=== PATIENT | female | born 1940 | race Caucasian/White ===

== ENCOUNTER 2020-04-07 12:54 | Emergency (ER) | payer MEDICARE, SELFPAY ==
[2020-04-07 13:04] VITALS: BP 133/50; PULSE 86; RESP 16; O2SAT 99
[2020-04-07 13:17] VITALS: BP 133/50; PULSE 86; RESP 16; O2SAT 99
--- NOTE | 2020-04-07 13:19 | ED.FEMALEGU ---
HPI - Female Genitourinary General Chief complaint: Urogenital-Female Stated complaint: uti Time Seen by Provider: 04/07/20 13:30 Source: patient History of Present Illness HPI Narrative: Patient states she feels as if she has urinary tract infection. Patient presents with urgency, burning with urination and incontinence at times. No abdominal pain no pelvic pain. Patient denies any flank pain no gross hematuria. Patient denies any concern for STDs.No vaginal discharge. patient reports symptoms started yesterday. Patient took azo last night and this am. MD elicited complaint: dysuria Related Data Home Medications Medication Instructions Recorded Confirmed aspirin [Adult Low Dose Aspirin] 81 mg PO DAILY 04/07/20 04/07/20 gabapentin 300 mg PO TID 04/07/20 04/07/20 losartan 50 mg PO DAILY 04/07/20 04/07/20 omeprazole 20 mg PO DAILY 04/07/20 04/07/20 simvastatin 20 mg PO DAILY 04/07/20 04/07/20 Allergies Allergy/AdvReac Type Severity Reaction Status Date / Time No Known Allergies Allergy Verified 04/07/20 13:15 Review of Systems Review of Systems: Narrative: CONSTITUTIONAL: Denies fever, chills, or sweats. EYES: Denies visual changes, redness, or discharge. ENT: Denies rhinorrhea, congestion, sore throat, or otalgia. CARDIOVASCULAR: Denies chest pain, palpitations, or edema. RESPIRATORY: Denies cough or dyspnea. GASTROINTESTINAL: Denies abdominal pain, nausea, vomiting, or diarrhea. GENITOURINARY: Denies dysuria or hematuria. SKIN: Denies rash or itching. MUSCULOSKELETAL: Denies back pain, joint pain, or myalgia. NEUROLOGIC: Denies headache, numbness, or weakness. PSYCHIATRIC: Denies anxiety or depression. PMFSH Comments At time of signature, agree with nursing past medical, surgical, social and family history. There is no relevant family history pertinent to the presenting complaint Exam Narrative: Exam Narrative: GENERAL: Well-appearing, well-nourished, and in no acute distress. HEAD: Normocephalic, atraumatic. EYES: PERRLA and EOMI. ENT: Nares clear, no rhinorrhea or epistaxis. Mucous membranes moist. NECK: Supple. CHEST: Clear to auscultation. No respiratory distress. HEART: Regular rate and rhythm. No murmur heard. Normal peripheral pulses. ABDOMEN: Soft, nontender, nondistended, normal active bowel sounds. EXTREMITIES: Normal range of motion. No edema. SKIN: Warm, dry, no rash. NEURO: No focal deficits. Alert and oriented x3. [place] Coma Scale Eye Opening: Spontaneous 4 Juan Coma Scale Motor: Obeys Commands 6 Juan Coma Scale Verbal: Oriented 5 Juan Coma Scale Total 15 Course Vital Signs Vital signs: Vital Signs Pulse Rate 86 04/07/20 13:04 Respiratory Rate 16 04/07/20 13:04 Blood Pressure 133/50 L 04/07/20 13:04 Pulse Oximetry 99 04/07/20 13:04 Pulse Rate 86 04/07/20 13:17 Respiratory Rate 16 04/07/20 13:17 Blood Pressure 133/50 L 04/07/20 13:17 Pulse Oximetry 99 04/07/20 13:17 Please MARIS schedule a followup visit with your personal physician for further evaluation and treatment. Including recheck and discussion of your blood pressure. If your symptoms persist, change or worsen significantly before you can contact your personal physician then please, without delay, go to the emergency department for further evaluation MDM - Female Genitourinary Differential Diagnosis Differential diagnosis: Likely urinary tract infection, bacterial vaginosis, vaginitis and cystitis Lab Data Labs: Urine Glucose 1+ Reference Range: Negative Urine Bilirubin 1+ Reference Range: Negative Urine Ketone Trace Reference Range: Negative Urine Specific [place] 1.010 Reference Range:1.001-1.035
--- NOTE | 2020-04-07 13:44 | PC.NURSE ---
1344- WHEN PT VOIDED FOR URINE SPECIMEN SHE WAS UNABLE TO GIVE ENOUGH URINE FOR CULTURE. PT IS DRINKING WATER AND WILL ATTEMPT TO VOID AGAIN FOR THE CULTURE. PROVIDER AWARE.
== END 2020-04-07 14:03 | disposition home or self-care (01) ==
PROVIDERS: Emergency Provider Nurse Practitioner Family
DX: N39.0 Urinary tract infection, site not specified (principal); E78.00 Pure hypercholesterolemia, unspecified; I10 Essential (primary) hypertension
CPT/HCPCS: 81003; 87077; 87086; 87088; 87186; 99213; G0463